=== PATIENT | male | born 1945 | race Caucasian/White ===

== ENCOUNTER 2020-12-06 16:44 | Inpatient (IN) ==
[2020-12-06] MEDS ORDERED: Naloxone 0.4 MG/ML INJ IVP PRN (21:36)
[2020-12-06] MEDS ORDERED: Ondansetron 4 MG/2 ML VIAL IVP PRN (21:36)
[2020-12-06] MEDS ORDERED: Potassium Chloride Elixir 20 MEQ/15 ML UDC PO ONE (21:55)
[2020-12-06] MEDS ORDERED: Potassium Chloride 40 MEQ, Lidocaine 1% 2 ML in 0.9 % Sodium Chloride 500 ML IVPB ONE (22:15)
[2020-12-06] MEDS ORDERED: Milk and Molasses Enema 200 ML RC ONE (23:28)
[2020-12-07 06:06] LABS: Basophils % 0.1 %; Hematocrit 31.4 % (37.5-50.1); Hemoglobin 10.4 g/dL (12.9-16.9); INR 1.3; Immature Granulocytes % 0.5 % (0-4); Lymphocytes # 0.8 K/mcL (0.6-4.6); Lymphocytes % 6.2 %; Mean Corpuscular HGB Conc 33.1 g/dL (31.6-35.5); Mean Corpuscular Hemoglobin 27.5 pg (28.0-33.3); Mean Corpuscular Volume 83.1 fL (83.0-100.0); Monocytes % 8.2 %; Neutrophils # 10.8 K/mcL (1.6-8.9); Platelet Count 202 K/mcL (140-400); Prothrombin Time 15.1 Seconds (9.4-12.1); Red Blood Count 3.78 M/mcL (4.19-5.50); Red Cell Distribution Width 15.3 % (11.5-14.5); White Blood Count 12.7 K/mcL (4.3-11.1)
[2020-12-07 06:24] LABS: Alanine Aminotransferase 9 Units/L (7-52); Albumin 2.7 g/dL (3.5-5.7); Alkaline Phosphatase 61 Units/L (34-104); Aspartate Amino Transferase 11 Units/L (13-39); BUN/Creatinine Ratio 23 (6-26); Bilirubin,Total 0.9 mg/dL (0.3-1.0); Blood Urea Nitrogen 10 mg/dL (8-23); Calcium 8.1 mg/dL (8.6-10.3); Carbon Dioxide 19 mEq/L (23-29); Chloride 122 mEq/L (98-107); Globulin 2.8 g/dL (2.4-3.5); Glucose 133 mg/dL (70-105); Magnesium 1.7 mg/dL (1.6-2.6); Osmolality,Calculated 309 (280-300); Phosphorous 1.6 mg/dL (2.7-4.5); Potassium 3.6 mEq/L (3.5-5.1); Sodium 149 mEq/L (136-145); Total Protein 5.5 g/dL (6.4-8.9); eGFR For African Americans > 60 (> 60); eGFR For Non-African Americans > 60 (> 60)
[2020-12-07] MEDS: Piperacillin/Tazobactam 3.375 GM in 0.9 % Sodium Chloride Mini Bag 100 ML IVPB SCH ×3 (08:14→23:18)
[2020-12-07] MEDS ORDERED: CefTRIAXone 2,000 MG VIAL IVPB SCH (09:00)
[2020-12-07] MEDS ORDERED: Sennosides 8.6 MG TABLET PO SCH (09:00)
[2020-12-07] MEDS ORDERED: cefTRIAXone 2,000 MG in Water for inj. (sterile) 20 ML IVPB SCH (09:00)
[2020-12-07] MEDS ORDERED: polyethylene glycoL 3350 17 GM POWD.PACK PO SCH (09:00)
[2020-12-07] MEDS ORDERED: Loratadine 10 MG TABLET PO SCH (09:00)
[2020-12-07] MEDS ORDERED: Lactulose Oral Soln 20 GM/30 ML UDC PO SCH (09:00)
[2020-12-07] MEDS: Simethicone 80 MG TAB.CHEW PO SCH ×3 (10:02→20:23)
[2020-12-07] MEDS ORDERED: Furosemide 40 MG/4 ML VIAL IVP ONE (11:24)
[2020-12-07] MEDS ORDERED: *HR* Propofol 200 MG/20 ML VIAL IVP ONE (16:45)
[2020-12-07] MEDS ORDERED: Ondansetron 4 MG/2 ML VIAL ONE (16:47)
[2020-12-07] MEDS ORDERED: Lidocaine -MPF 2% 2 ML VIAL ONE (16:48)
[2020-12-07] MEDS ORDERED: *HR* PHENYLEPHRINE 1,000 MCG/10 ML SYRINGE IVP ONE (17:13)
[2020-12-07] MEDS ORDERED: Ondansetron 4 MG/2 ML VIAL IVP PRN (18:26)
[2020-12-07] MEDS ORDERED: Naloxone 0.4 MG/ML INJ IVP PRN (18:26)
[2020-12-08 05:07] LABS: Basophils % 0.2 %; Hematocrit 32.4 % (37.5-50.1); Hemoglobin 10.4 g/dL (12.9-16.9); Lymphocytes # 1.2 K/mcL (0.6-4.6); Lymphocytes % 9.5 %; Mean Corpuscular HGB Conc 32.1 g/dL (31.6-35.5); Mean Corpuscular Hemoglobin 26.6 pg (28.0-33.3); Mean Corpuscular Volume 82.9 fL (83.0-100.0); Mean Platelet Volume 10.9 fL (9.4-12.4); Monocytes # 0.9 K/mcL (0.0-1.3); Monocytes % 6.7 %; Neutrophils # 10.7 K/mcL (1.6-8.9); Platelet Count 186 K/mcL (140-400); Red Blood Count 3.91 M/mcL (4.19-5.50); Red Cell Distribution Width 15.6 % (11.5-14.5); Segmented Neutrophils % 82.6 %; White Blood Count 12.9 K/mcL (4.3-11.1)
[2020-12-08 05:29] LABS: BUN/Creatinine Ratio 27 (6-26); Blood Urea Nitrogen 12 mg/dL (8-23); Calcium 8.2 mg/dL (8.6-10.3); Carbon Dioxide 27 mEq/L (23-29); Chloride 118 mEq/L (98-107); Glucose 120 mg/dL (70-105); Osmolality,Calculated 321 (280-300); Potassium 2.5 mEq/L (3.5-5.1); Sodium 155 mEq/L (136-145); eGFR For African Americans > 60 (> 60); eGFR For Non-African Americans > 60 (> 60)
[2020-12-08] MEDS ORDERED: Potassium Chloride Elixir 20 MEQ/15 ML UDC PO ONE (06:11)
[2020-12-08] MEDS ORDERED: Potassium Chloride 40 MEQ, Lidocaine 1% 2 ML in 0.9 % Sodium Chloride 500 ML IVPB ONE ×2 (06:12→19:47)
[2020-12-08] MEDS: Lactulose Oral Soln 20 GM/30 ML UDC PO SCH (08:43)
[2020-12-08] MEDS: Simethicone 80 MG TAB.CHEW PO SCH ×3 (08:44→22:25)
[2020-12-08] MEDS: polyethylene glycoL 3350 17 GM POWD.PACK PO SCH (08:44)
[2020-12-08] MEDS: Loratadine 10 MG TABLET PO SCH (08:44)
[2020-12-08] MEDS: Sennosides 8.6 MG TABLET PO SCH (08:45)
[2020-12-08] MEDS: Piperacillin/Tazobactam 3.375 GM in 0.9 % Sodium Chloride Mini Bag 100 ML IVPB SCH ×2 (08:47→16:45)
[2020-12-08] MEDS: Acetaminophen 325 MG TABLET PO PRN (19:51)
[2020-12-08 20:47] LABS: BUN/Creatinine Ratio 33 (6-26); Blood Urea Nitrogen 15 mg/dL (8-23); Calcium 8.1 mg/dL (8.6-10.3); Carbon Dioxide 25 mEq/L (23-29); Chloride 121 mEq/L (98-107); Glucose 308 mg/dL (70-105); Osmolality,Calculated 336 (280-300); Potassium 2.7 mEq/L (3.5-5.1); Sodium 157 mEq/L (136-145); eGFR For African Americans > 60 (> 60); eGFR For Non-African Americans > 60 (> 60)
[2020-12-09] MEDS: Piperacillin/Tazobactam 3.375 GM in 0.9 % Sodium Chloride Mini Bag 100 ML IVPB SCH ×4 (00:41→15:52)
[2020-12-09] MEDS ORDERED: Potassium Chloride 40 MEQ, Lidocaine 1% 2 ML in 0.9 % Sodium Chloride 500 ML IVPB ONE (02:30)
[2020-12-09 07:27] LABS: Basophils % 0.2 %; Eosinophils # 0.1 K/mcL (0.0-0.6); Hematocrit 31.7 % (37.5-50.1); Hemoglobin 10.7 g/dL (12.9-16.9); Immature Granulocytes % 2.1 % (0-4); Lymphocytes # 1.9 K/mcL (0.6-4.6); Mean Corpuscular HGB Conc 33.8 g/dL (31.6-35.5); Mean Corpuscular Hemoglobin 28.5 pg (28.0-33.3); Mean Corpuscular Volume 84.3 fL (83.0-100.0); Mean Platelet Volume 11.1 fL (9.4-12.4); Monocytes # 0.8 K/mcL (0.0-1.3); Monocytes % 5.4 %; Neutrophils # 11.3 K/mcL (1.6-8.9); Platelet Count 234 K/mcL (140-400); Red Blood Count 3.76 M/mcL (4.19-5.50); Red Cell Distribution Width 15.8 % (11.5-14.5); Segmented Neutrophils % 78.3 %; White Blood Count 14.5 K/mcL (4.3-11.1)
[2020-12-09 07:53] LABS: BUN/Creatinine Ratio 41 (6-26); Blood Urea Nitrogen 12 mg/dL (8-23); Calcium 7.9 mg/dL (8.6-10.3); Carbon Dioxide 24 mEq/L (23-29); Chloride 127 mEq/L (98-107); Glucose 129 mg/dL (70-105); Osmolality,Calculated 329 (280-300); Potassium 3.7 mEq/L (3.5-5.1); Sodium 159 mEq/L (136-145); eGFR For African Americans > 60 (> 60); eGFR For Non-African Americans > 60 (> 60)
[2020-12-09] MEDS: Lactulose Oral Soln 20 GM/30 ML UDC PO SCH (08:52)
[2020-12-09] MEDS: Simethicone 80 MG TAB.CHEW PO SCH ×3 (08:52→20:37)
[2020-12-09] MEDS: polyethylene glycoL 3350 17 GM POWD.PACK PO SCH (08:53)
[2020-12-09] MEDS: Loratadine 10 MG TABLET PO SCH (08:55)
[2020-12-09] MEDS: Sennosides 8.6 MG TABLET PO SCH (08:55)
[2020-12-10] MEDS: Piperacillin/Tazobactam 3.375 GM in 0.9 % Sodium Chloride Mini Bag 100 ML IVPB SCH ×3 (00:10→17:12)
[2020-12-10] MEDS: Acetaminophen 325 MG TABLET PO PRN (03:11)
[2020-12-10] MEDS ORDERED: Ibuprofen 600 MG TABLET PO ONE (04:50)
[2020-12-10 06:09] LABS: Adenovirus Not Detected (Not Detect); Bordetella Pertussis Not Detected (Not Detect); Chlamydophila pneumoniae Not Detected (Not Detect); Coronavirus 229E Not Detected (Not Detect); Coronavirus HKU1 Not Detected (Not Detect); Coronavirus NL63 Not Detected (Not Detect); Coronavirus OC43 Not Detected (Not Detect); Human Metapneumovirus Not Detected (Not Detect); Human Rhinovirus/Enterovirus Not Detected (Not Detect); Influenza A Subtype 2009 H1 Not Detected (Not Detect); Influenza B Not Detected (Not Detect); Mycoplasma pneumoniae Not Detected (Not Detect); Parainfluenza Virus 1 Not Detected (Not Detect); Parainfluenza Virus 2 Not Detected (Not Detect); Parainfluenza Virus 3 Not Detected (Not Detect); Parainfluenza Virus 4 Not Detected (Not Detect); Respiratory Syncytial Virus Not Detected (Not Detect); SARS-CoV-2 Not Detected (Not Detect)
[2020-12-10 08:56] LABS: Basophils % 0.2 %; Eosinophils # 0.6 K/mcL (0.0-0.6); Eosinophils % 4.9 %; Hematocrit 28.8 % (37.5-50.1); Hemoglobin 9.3 g/dL (12.9-16.9); Lymphocytes # 2.1 K/mcL (0.6-4.6); Lymphocytes % 17.1 %; Mean Corpuscular HGB Conc 32.3 g/dL (31.6-35.5); Mean Corpuscular Hemoglobin 27.9 pg (28.0-33.3); Mean Corpuscular Volume 86.5 fL (83.0-100.0); Monocytes # 0.6 K/mcL (0.0-1.3); Monocytes % 4.7 %; Neutrophils # 8.7 K/mcL (1.6-8.9); Platelet Count 280 K/mcL (140-400); Red Blood Count 3.33 M/mcL (4.19-5.50); Segmented Neutrophils % 72.1 %
[2020-12-10 09:28] LABS: BUN/Creatinine Ratio 39 (6-26); Blood Urea Nitrogen 13 mg/dL (8-23); Calcium 7.9 mg/dL (8.6-10.3); Carbon Dioxide 27 mEq/L (23-29); Chloride 128 mEq/L (98-107); Glucose 110 mg/dL (70-105); Osmolality,Calculated 335 (280-300); Potassium 3.4 mEq/L (3.5-5.1); Sodium 162 mEq/L (136-145); eGFR For African Americans > 60 (> 60); eGFR For Non-African Americans > 60 (> 60)
[2020-12-10] MEDS ORDERED: D5% in Water 1,000 ML IVC SCH (09:45)
[2020-12-10] MEDS: Sennosides 8.6 MG TABLET PO SCH (09:54)
[2020-12-10] MEDS: Loratadine 10 MG TABLET PO SCH (09:55)
[2020-12-10] MEDS: Lactulose Oral Soln 20 GM/30 ML UDC PO SCH (09:55)
[2020-12-10] MEDS: Simethicone 80 MG TAB.CHEW PO SCH ×3 (09:55→20:51)
[2020-12-10] MEDS: polyethylene glycoL 3350 17 GM POWD.PACK PO SCH (09:56)
[2020-12-10] MEDS: Furosemide 40 MG/4 ML VIAL IVP SCH (12:14)
[2020-12-11] MEDS: Piperacillin/Tazobactam 3.375 GM in 0.9 % Sodium Chloride Mini Bag 100 ML IVPB SCH ×4 (00:04→23:23)
[2020-12-11 05:43] LABS: Basophils % 0.3 %; Eosinophils # 0.9 K/mcL (0.0-0.6); Eosinophils % 5.7 %; Hemoglobin 9.6 g/dL (12.9-16.9); Immature Granulocytes % 1.1 % (0-4); Lymphocytes % 12.7 %; Mean Corpuscular Hemoglobin 28.1 pg (28.0-33.3); Mean Corpuscular Volume 87.7 fL (83.0-100.0); Mean Platelet Volume 11.3 fL (9.4-12.4); Monocytes # 0.6 K/mcL (0.0-1.3); Monocytes % 3.5 %; Platelet Count 324 K/mcL (140-400); Red Blood Count 3.42 M/mcL (4.19-5.50); Segmented Neutrophils % 76.7 %; White Blood Count 15.7 K/mcL (4.3-11.1)
[2020-12-11 06:03] LABS: BUN/Creatinine Ratio 50 (6-26); Blood Urea Nitrogen 11 mg/dL (8-23); Calcium 7.9 mg/dL (8.6-10.3); Carbon Dioxide 32 mEq/L (23-29); Chloride 117 mEq/L (98-107); Glucose 113 mg/dL (70-105); Osmolality,Calculated 322 (280-300); Potassium 2.8 mEq/L (3.5-5.1); Sodium 156 mEq/L (136-145); eGFR For African Americans > 60 (> 60); eGFR For Non-African Americans > 60 (> 60)
[2020-12-11] MEDS ORDERED: Potassium Chloride 40 MEQ, Lidocaine 1% 2 ML in 0.9 % Sodium Chloride 500 ML IVPB ONE (08:54)
[2020-12-11] MEDS: Loratadine 10 MG TABLET PO SCH (10:09)
[2020-12-11] MEDS: Sennosides 8.6 MG TABLET PO SCH (10:09)
[2020-12-11] MEDS: Lactulose Oral Soln 20 GM/30 ML UDC PO SCH (10:09)
[2020-12-11] MEDS: Simethicone 80 MG TAB.CHEW PO SCH ×3 (10:09→22:05)
[2020-12-11] MEDS: Furosemide 40 MG/4 ML VIAL IVP SCH (10:09)
[2020-12-11] MEDS: polyethylene glycoL 3350 17 GM POWD.PACK PO SCH (10:10)
[2020-12-11] MEDS ORDERED: Potassium Chloride Elixir 20 MEQ/15 ML UDC PO ONE (16:10)
[2020-12-11] MEDS: Acetaminophen 325 MG TABLET PO PRN (23:23)
[2020-12-12 04:02] LABS: Basophils % 0.2 %; Eosinophils # 0.4 K/mcL (0.0-0.6); Eosinophils % 2.6 %; Hematocrit 32.6 % (37.5-50.1); Hemoglobin 9.8 g/dL (12.9-16.9); Lymphocytes # 2.3 K/mcL (0.6-4.6); Lymphocytes % 13.9 %; Mean Corpuscular HGB Conc 30.1 g/dL (31.6-35.5); Mean Corpuscular Hemoglobin 26.8 pg (28.0-33.3); Mean Corpuscular Volume 89.3 fL (83.0-100.0); Mean Platelet Volume 11.2 fL (9.4-12.4); Monocytes # 0.6 K/mcL (0.0-1.3); Monocytes % 3.6 %; Neutrophils # 13.1 K/mcL (1.6-8.9); Platelet Count 389 K/mcL (140-400); Red Blood Count 3.65 M/mcL (4.19-5.50); Segmented Neutrophils % 78.7 %; White Blood Count 16.6 K/mcL (4.3-11.1)
[2020-12-12 04:15] LABS: BUN/Creatinine Ratio 33 (6-26); Blood Urea Nitrogen 14 mg/dL (8-23); Calcium 8.2 mg/dL (8.6-10.3); Carbon Dioxide 33 mEq/L (23-29); Chloride 117 mEq/L (98-107); Glucose 182 mg/dL (70-105); Osmolality,Calculated 331 (280-300); Sodium 158 mEq/L (136-145); eGFR For African Americans > 60 (> 60); eGFR For Non-African Americans > 60 (> 60)
[2020-12-12] MEDS ORDERED: 0.9 % Sodium Chloride 1,000 ML ONE (07:23)
[2020-12-12] MEDS ORDERED: Potassium Chloride Elixir 20 MEQ/15 ML UDC PO ONE (07:28)
[2020-12-12] MEDS ORDERED: Isovue-370 500 ML BOTTLE IVP ONE ×2 (07:31→12:10)
[2020-12-12] MEDS: Loratadine 10 MG TABLET PO SCH (08:54)
[2020-12-12] MEDS: Lactulose Oral Soln 20 GM/30 ML UDC PO SCH (08:54)
[2020-12-12] MEDS: Simethicone 80 MG TAB.CHEW PO SCH ×3 (08:54→20:06)
[2020-12-12] MEDS: Furosemide 40 MG/4 ML VIAL IVP SCH (08:55)
[2020-12-12] MEDS: Sennosides 8.6 MG TABLET PO SCH (08:56)
[2020-12-12] MEDS: polyethylene glycoL 3350 17 GM POWD.PACK PO SCH (08:56)
[2020-12-12] MEDS: Piperacillin/Tazobactam 3.375 GM in 0.9 % Sodium Chloride Mini Bag 100 ML IVPB SCH ×2 (09:04→16:10)
[2020-12-12] MEDS: levoFLOXacin 750 MG/150 ML 750 MG/150 ML BAG IVPB SCH (12:55)
[2020-12-12 13:48] LABS: BUN/Creatinine Ratio 45 (6-26); Blood Urea Nitrogen 14 mg/dL (8-23); Calcium 8.1 mg/dL (8.6-10.3); Carbon Dioxide 28 mEq/L (23-29); Chloride 120 mEq/L (98-107); Glucose 99 mg/dL (70-105); Osmolality,Calculated 325 (280-300); Potassium 4.8 mEq/L (3.5-5.1); Sodium 157 mEq/L (136-145); eGFR For African Americans > 60 (> 60); eGFR For Non-African Americans > 60 (> 60)
[2020-12-12] MEDS: D5% in Water 1,000 ML IVC SCH ×2 (14:45→19:21)
[2020-12-12 16:48] LABS: Adenovirus Not Detected (Not Detect); Bordetella Pertussis Not Detected (Not Detect); Chlamydophila pneumoniae Not Detected (Not Detect); Coronavirus 229E Not Detected (Not Detect); Coronavirus HKU1 Not Detected (Not Detect); Coronavirus NL63 Not Detected (Not Detect); Coronavirus OC43 Not Detected (Not Detect); Human Metapneumovirus Not Detected (Not Detect); Human Rhinovirus/Enterovirus Not Detected (Not Detect); Influenza A Subtype 2009 H1 Not Detected (Not Detect); Influenza B Not Detected (Not Detect); Mycoplasma pneumoniae Not Detected (Not Detect); Parainfluenza Virus 1 Not Detected (Not Detect); Parainfluenza Virus 2 Not Detected (Not Detect); Parainfluenza Virus 3 Not Detected (Not Detect); Parainfluenza Virus 4 Not Detected (Not Detect); Respiratory Syncytial Virus Not Detected (Not Detect); SARS-CoV-2 Not Detected (Not Detect)
[2020-12-12 19:11] LABS: BUN/Creatinine Ratio 36 (6-26); Blood Urea Nitrogen 10 mg/dL (8-23); Calcium 7.6 mg/dL (8.6-10.3); Carbon Dioxide 31 mEq/L (23-29); Chloride 118 mEq/L (98-107); Glucose 219 mg/dL (70-105); Osmolality,Calculated 322 (280-300); Potassium 3.2 mEq/L (3.5-5.1); Sodium 153 mEq/L (136-145); eGFR For African Americans > 60 (> 60); eGFR For Non-African Americans > 60 (> 60)
[2020-12-13] MEDS: Piperacillin/Tazobactam 3.375 GM in 0.9 % Sodium Chloride Mini Bag 100 ML IVPB SCH ×3 (01:43→15:21)
[2020-12-13 02:19] LABS: Basophils % 0.1 %; Eosinophils # 0.5 K/mcL (0.0-0.6); Eosinophils % 3.4 %; Hematocrit 28.9 % (37.5-50.1); Immature Granulocytes % 0.9 % (0-4); Lymphocytes % 14.6 %; Mean Corpuscular HGB Conc 31.1 g/dL (31.6-35.5); Mean Corpuscular Volume 89.8 fL (83.0-100.0); Mean Platelet Volume 11.1 fL (9.4-12.4); Monocytes # 0.5 K/mcL (0.0-1.3); Monocytes % 3.7 %; Neutrophils # 10.3 K/mcL (1.6-8.9); Platelet Count 380 K/mcL (140-400); Red Blood Count 3.22 M/mcL (4.19-5.50); Segmented Neutrophils % 77.3 %; White Blood Count 13.4 K/mcL (4.3-11.1)
[2020-12-13 02:38] LABS: BUN/Creatinine Ratio 33 (6-26); Blood Urea Nitrogen 8 mg/dL (8-23); Calcium 7.6 mg/dL (8.6-10.3); Carbon Dioxide 28 mEq/L (23-29); Chloride 114 mEq/L (98-107); Glucose 98 mg/dL (70-105); Osmolality,Calculated 306 (280-300); Potassium 3.1 mEq/L (3.5-5.1); Sodium 149 mEq/L (136-145); eGFR For African Americans > 60 (> 60); eGFR For Non-African Americans > 60 (> 60)
[2020-12-13] MEDS: D5% in Water 1,000 ML IVC SCH (08:05)
[2020-12-13] MEDS: polyethylene glycoL 3350 17 GM POWD.PACK PO SCH (08:06)
[2020-12-13] MEDS: Loratadine 10 MG TABLET PO SCH (08:06)
[2020-12-13] MEDS: Lactulose Oral Soln 20 GM/30 ML UDC PO SCH (08:06)
[2020-12-13] MEDS: Simethicone 80 MG TAB.CHEW PO SCH ×3 (08:06→20:31)
[2020-12-13] MEDS: Sennosides 8.6 MG TABLET PO SCH (08:07)
[2020-12-13] MEDS: levoFLOXacin 750 MG/150 ML 750 MG/150 ML BAG IVPB SCH (08:07)
[2020-12-13] MEDS: Furosemide 40 MG/4 ML VIAL IVP SCH (08:07)
[2020-12-13] MEDS ORDERED: Perflutren Lipid Microsphere 1.3 ML in 0.9 % Sodium Chloride 8.7 ML IVP PRN (12:43)
[2020-12-13 14:24] LABS: VBG HCO3 34 mEq/L (21-27); VBG PCO2 45 mmHg (41-51); VBG PH 7.49 pH Units (7.32-7.42); VBG PO2 137 mmHg (25-50)
[2020-12-13] MEDS: Acetaminophen 325 MG TABLET PO PRN (20:30)
[2020-12-14] MEDS: Piperacillin/Tazobactam 3.375 GM in 0.9 % Sodium Chloride Mini Bag 100 ML IVPB SCH ×2 (02:15→09:29)
[2020-12-14] MEDS: D5% in Water 1,000 ML IVC SCH (02:17)
[2020-12-14] MEDS: levoFLOXacin 750 MG/150 ML 750 MG/150 ML BAG IVPB SCH (09:08)
[2020-12-14] MEDS: Lactulose Oral Soln 20 GM/30 ML UDC PO SCH (09:10)
[2020-12-14] MEDS: Sennosides 8.6 MG TABLET PO SCH (09:10)
[2020-12-14] MEDS: Simethicone 80 MG TAB.CHEW PO SCH ×3 (09:10→21:01)
[2020-12-14] MEDS: polyethylene glycoL 3350 17 GM POWD.PACK PO SCH (09:11)
[2020-12-14] MEDS: Loratadine 10 MG TABLET PO SCH (09:11)
[2020-12-14] MEDS: Furosemide 40 MG/4 ML VIAL IVP SCH (09:11)
[2020-12-14 09:55] LABS: Hematocrit 31.1 % (37.5-50.1); Hemoglobin 9.5 g/dL (12.9-16.9); Mean Corpuscular HGB Conc 30.5 g/dL (31.6-35.5); Mean Corpuscular Hemoglobin 26.9 pg (28.0-33.3); Mean Corpuscular Volume 88.1 fL (83.0-100.0); Mean Platelet Volume 10.7 fL (9.4-12.4); Platelet Count 384 K/mcL (140-400); Red Blood Count 3.53 M/mcL (4.19-5.50); Red Cell Distribution Width 15.6 % (11.5-14.5)
[2020-12-14 10:19] LABS: BUN/Creatinine Ratio 19 (6-26); Blood Urea Nitrogen 7 mg/dL (8-23); Calcium 8.1 mg/dL (8.6-10.3); Carbon Dioxide 27 mEq/L (23-29); Chloride 107 mEq/L (98-107); Glucose 109 mg/dL (70-105); Osmolality,Calculated 293 (280-300); Potassium 3.3 mEq/L (3.5-5.1); Sodium 142 mEq/L (136-145); eGFR For African Americans > 60 (> 60); eGFR For Non-African Americans > 60 (> 60)
[2020-12-14] MEDS ORDERED: Potassium Chloride 40 MEQ, Lidocaine 1% 2 ML in 0.9 % Sodium Chloride 500 ML IVPB ONE (10:28)
[2020-12-14] MEDS ORDERED: Vancomycin 1,250 MG/262.5 ML IV.SOLN IVPB SCH (13:00)
[2020-12-14] MEDS: Acetaminophen 325 MG TABLET PO PRN (13:12)
[2020-12-14 16:39] LABS: BUN/Creatinine Ratio 16 (6-26); Blood Urea Nitrogen 7 mg/dL (8-23); Calcium 8.6 mg/dL (8.6-10.3); Carbon Dioxide 29 mEq/L (23-29); Chloride 108 mEq/L (98-107); Glucose 131 mg/dL (70-105); Osmolality,Calculated 298 (280-300); Sodium 144 mEq/L (136-145); eGFR For African Americans > 60 (> 60); eGFR For Non-African Americans > 60 (> 60)
[2020-12-14] MEDS ORDERED: Ipratropium/Albuterol Neb 3 ML IH PRN (17:50)
[2020-12-15 05:57] LABS: Hematocrit 33.8 % (37.5-50.1); Hemoglobin 10.4 g/dL (12.9-16.9); Mean Corpuscular HGB Conc 30.8 g/dL (31.6-35.5); Mean Corpuscular Hemoglobin 26.9 pg (28.0-33.3); Mean Corpuscular Volume 87.3 fL (83.0-100.0); Mean Platelet Volume 10.4 fL (9.4-12.4); Platelet Count 450 K/mcL (140-400); Red Blood Count 3.87 M/mcL (4.19-5.50); Red Cell Distribution Width 15.4 % (11.5-14.5)
[2020-12-15 06:17] LABS: BUN/Creatinine Ratio 19 (6-26); Blood Urea Nitrogen 7 mg/dL (8-23); Calcium 8.5 mg/dL (8.6-10.3); Carbon Dioxide 26 mEq/L (23-29); Chloride 110 mEq/L (98-107); Glucose 111 mg/dL (70-105); Osmolality,Calculated 295 (280-300); Potassium 3.9 mEq/L (3.5-5.1); Sodium 143 mEq/L (136-145); eGFR For African Americans > 60 (> 60); eGFR For Non-African Americans > 60 (> 60)
[2020-12-15] MEDS: levoFLOXacin 750 MG/150 ML 750 MG/150 ML BAG IVPB SCH (08:55)
[2020-12-15] MEDS: Furosemide 40 MG/4 ML VIAL IVP SCH (08:57)
[2020-12-15] MEDS: Lactulose Oral Soln 20 GM/30 ML UDC PO SCH (10:05)
[2020-12-15] MEDS: polyethylene glycoL 3350 17 GM POWD.PACK PO SCH (10:05)
[2020-12-15] MEDS: Simethicone 80 MG TAB.CHEW PO SCH ×3 (10:05→20:40)
[2020-12-15] MEDS: Sennosides 8.6 MG TABLET PO SCH (10:05)
[2020-12-15] MEDS: Loratadine 10 MG TABLET PO SCH (10:05)
[2020-12-15] MEDS ORDERED: 0.9 % Sodium Chloride 500 ML IVC ONE (10:58)
[2020-12-15] MEDS: Acetaminophen 325 MG TABLET PO PRN (11:12)
[2020-12-15] MEDS ORDERED: Isovue-370 500 ML BOTTLE IVP ONE (12:31)
[2020-12-15] MEDS ORDERED: Ketorolac 15 MG/ML VIAL IVP ONE (12:31)
[2020-12-15] MEDS ORDERED: 0.9 % Sodium Chloride 250 ML IV ONE (13:03)
[2020-12-15] MEDS ORDERED: *HR* Metoprolol 5 MG/5 ML VIAL IVP ONE (14:16)
[2020-12-15] MEDS ORDERED: *HR* Heparin 5,000 UNIT/ML VIAL IVP PRN ×2 (14:21)
[2020-12-15] MEDS ORDERED: *HR* Heparin 5,000 UNIT/ML VIAL IVP ONE (14:21)
[2020-12-15] MEDS ORDERED: Heparin 25,000UNIT/250ML 1/2NS 25,000 UNIT/250 ML IV.SOLN IVC SCH (14:30)
[2020-12-15] MEDS: *HR* Enoxaparin 60 MG/0.6 ML SYRINGE SQ SCH (14:33)
[2020-12-15 15:29] LABS: Hematocrit 32.7 % (37.5-50.1); Hemoglobin 10.2 g/dL (12.9-16.9); Mean Corpuscular HGB Conc 31.2 g/dL (31.6-35.5); Mean Corpuscular Hemoglobin 27.8 pg (28.0-33.3); Mean Corpuscular Volume 89.1 fL (83.0-100.0); Mean Platelet Volume 10.6 fL (9.4-12.4); Platelet Count 490 K/mcL (140-400); Red Blood Count 3.67 M/mcL (4.19-5.50); Red Cell Distribution Width 15.2 % (11.5-14.5); White Blood Count 14.1 K/mcL (4.3-11.1)
[2020-12-15] MEDS ORDERED: [UNRECOGNIZED DRUG - OTHER] PO SCH (18:00)
[2020-12-15] MEDS: Sennosides/Docusate Sodium TABLET PO SCH (20:40)
[2020-12-16 04:40] LABS: Hematocrit 35.2 % (37.5-50.1); Hemoglobin 10.8 g/dL (12.9-16.9); Mean Corpuscular HGB Conc 30.7 g/dL (31.6-35.5); Mean Corpuscular Hemoglobin 27.1 pg (28.0-33.3); Mean Corpuscular Volume 88.4 fL (83.0-100.0); Mean Platelet Volume 10.7 fL (9.4-12.4); Platelet Count 523 K/mcL (140-400); Red Blood Count 3.98 M/mcL (4.19-5.50); Red Cell Distribution Width 15.8 % (11.5-14.5)
[2020-12-16 05:00] LABS: BUN/Creatinine Ratio 32 (6-26); Blood Urea Nitrogen 13 mg/dL (8-23); Calcium 8.7 mg/dL (8.6-10.3); Carbon Dioxide 24 mEq/L (23-29); Chloride 113 mEq/L (98-107); Glucose 128 mg/dL (70-105); Osmolality,Calculated 310 (280-300); Potassium 3.3 mEq/L (3.5-5.1); Sodium 149 mEq/L (136-145); eGFR For African Americans > 60 (> 60); eGFR For Non-African Americans > 60 (> 60)
[2020-12-16] MEDS: *HR* Enoxaparin 60 MG/0.6 ML SYRINGE SQ SCH (05:33)
[2020-12-16] MEDS: Sennosides/Docusate Sodium TABLET PO SCH ×2 (07:52→20:34)
[2020-12-16] MEDS: levoFLOXacin 750 MG/150 ML 750 MG/150 ML BAG IVPB SCH (07:52)
[2020-12-16] MEDS: Simethicone 80 MG TAB.CHEW PO SCH ×3 (07:52→20:35)
[2020-12-16] MEDS: Lactulose Oral Soln 20 GM/30 ML UDC PO SCH (07:52)
[2020-12-16] MEDS: Loratadine 10 MG TABLET PO SCH (07:52)
[2020-12-16] MEDS: Potassium Chloride Elixir 20 MEQ/15 ML UDC PO SCH ×2 (08:10→14:00)
[2020-12-16] MEDS: polyethylene glycoL 3350 17 GM POWD.PACK PO SCH (08:11)
[2020-12-16] MEDS: D5% in Water 1,000 ML IVC SCH (08:11)
[2020-12-16] MEDS ORDERED: *HR* Metoprolol 5 MG/5 ML VIAL IVP ONE (08:46)
[2020-12-16] MEDS: Apixaban 5 MG TABLET PO SCH ×2 (09:49→20:35)
[2020-12-17] MEDS: D5% in Water 1,000 ML IVC SCH ×2 (00:06→13:32)
[2020-12-17 04:00] LABS: Hematocrit 32.8 % (37.5-50.1); Mean Corpuscular HGB Conc 30.5 g/dL (31.6-35.5); Mean Corpuscular Hemoglobin 27.5 pg (28.0-33.3); Mean Corpuscular Volume 90.1 fL (83.0-100.0); Mean Platelet Volume 11.2 fL (9.4-12.4); Platelet Count 461 K/mcL (140-400); Red Blood Count 3.64 M/mcL (4.19-5.50); Red Cell Distribution Width 15.9 % (11.5-14.5)
[2020-12-17 04:25] LABS: BUN/Creatinine Ratio 38 (6-26); Blood Urea Nitrogen 15 mg/dL (8-23); Calcium 8.3 mg/dL (8.6-10.3); Carbon Dioxide 21 mEq/L (23-29); Chloride 112 mEq/L (98-107); Glucose 149 mg/dL (70-105); Osmolality,Calculated 298 (280-300); Potassium 4.2 mEq/L (3.5-5.1); Sodium 142 mEq/L (136-145); eGFR For African Americans > 60 (> 60); eGFR For Non-African Americans > 60 (> 60)
[2020-12-17] MEDS ORDERED: *HR* Belladonna Alkaloids/Opium 30 MG RECTAL SUPPOSITORY RC ONE (05:42)
[2020-12-17] MEDS: Sennosides/Docusate Sodium TABLET PO SCH ×2 (08:22→21:49)
[2020-12-17] MEDS: polyethylene glycoL 3350 17 GM POWD.PACK PO SCH (08:22)
[2020-12-17] MEDS: Loratadine 10 MG TABLET PO SCH (08:23)
[2020-12-17] MEDS: levoFLOXacin 750 MG/150 ML 750 MG/150 ML BAG IVPB SCH (08:23)
[2020-12-17] MEDS: Lactulose Oral Soln 20 GM/30 ML UDC PO SCH (08:23)
[2020-12-17] MEDS: Apixaban 5 MG TABLET PO SCH ×2 (08:23→21:49)
[2020-12-17] MEDS: Simethicone 80 MG TAB.CHEW PO SCH ×3 (08:23→21:49)
[2020-12-17 12:12] LABS: Hematocrit 32.2 % (37.5-50.1); Hemoglobin 9.6 g/dL (12.9-16.9)
[2020-12-17 18:19] LABS: Hematocrit 34.1 % (37.5-50.1); Hemoglobin 10.4 g/dL (12.9-16.9)
[2020-12-18 00:30] LABS: Hematocrit 36.4 % (37.5-50.1); Hemoglobin 10.9 g/dL (12.9-16.9)
[2020-12-18] MEDS: D5% in Water 1,000 ML IVC SCH (03:00)
[2020-12-18 03:13] LABS: Hematocrit 31.9 % (37.5-50.1); Hemoglobin 9.7 g/dL (12.9-16.9); Mean Corpuscular HGB Conc 30.4 g/dL (31.6-35.5); Mean Corpuscular Hemoglobin 27.2 pg (28.0-33.3); Mean Corpuscular Volume 89.6 fL (83.0-100.0); Mean Platelet Volume 10.3 fL (9.4-12.4); Platelet Count 489 K/mcL (140-400); Red Blood Count 3.56 M/mcL (4.19-5.50); Red Cell Distribution Width 15.4 % (11.5-14.5); White Blood Count 14.8 K/mcL (4.3-11.1)
[2020-12-18 03:36] LABS: BUN/Creatinine Ratio 27 (6-26); Blood Urea Nitrogen 9 mg/dL (8-23); Calcium 8.1 mg/dL (8.6-10.3); Carbon Dioxide 21 mEq/L (23-29); Chloride 106 mEq/L (98-107); Glucose 137 mg/dL (70-105); Osmolality,Calculated 281 (280-300); Potassium 3.9 mEq/L (3.5-5.1); Sodium 135 mEq/L (136-145); eGFR For African Americans > 60 (> 60); eGFR For Non-African Americans > 60 (> 60)
[2020-12-18] MEDS: polyethylene glycoL 3350 17 GM POWD.PACK PO SCH (07:29)
[2020-12-18] MEDS: Apixaban 5 MG TABLET PO SCH ×2 (07:29→20:36)
[2020-12-18] MEDS: Loratadine 10 MG TABLET PO SCH (07:29)
[2020-12-18] MEDS: Simethicone 80 MG TAB.CHEW PO SCH ×3 (07:29→20:36)
[2020-12-18] MEDS: Lactulose Oral Soln 20 GM/30 ML UDC PO SCH (07:29)
[2020-12-18] MEDS: levoFLOXacin 750 MG/150 ML 750 MG/150 ML BAG IVPB SCH (07:30)
[2020-12-18] MEDS: Sennosides/Docusate Sodium TABLET PO SCH ×2 (07:31→20:42)
[2020-12-18 14:38] LABS: Hematocrit 32.5 % (37.5-50.1); Hemoglobin 10.1 g/dL (12.9-16.9)
[2020-12-18 19:42] LABS: Hematocrit 33.9 % (37.5-50.1); Hemoglobin 10.3 g/dL (12.9-16.9)
[2020-12-19 01:04] LABS: Hematocrit 32.9 % (37.5-50.1); Hemoglobin 10.5 g/dL (12.9-16.9)
[2020-12-19 05:22] LABS: Hematocrit 34.8 % (37.5-50.1); Hemoglobin 10.6 g/dL (12.9-16.9); Mean Corpuscular HGB Conc 30.5 g/dL (31.6-35.5); Mean Corpuscular Hemoglobin 26.6 pg (28.0-33.3); Mean Corpuscular Volume 87.4 fL (83.0-100.0); Mean Platelet Volume 10.1 fL (9.4-12.4); Platelet Count 492 K/mcL (140-400); Red Blood Count 3.98 M/mcL (4.19-5.50); Red Cell Distribution Width 15.3 % (11.5-14.5); White Blood Count 13.5 K/mcL (4.3-11.1)
[2020-12-19 05:31] LABS: BUN/Creatinine Ratio 26 (6-26); Blood Urea Nitrogen 8 mg/dL (8-23); Calcium 8.1 mg/dL (8.6-10.3); Carbon Dioxide 20 mEq/L (23-29); Chloride 105 mEq/L (98-107); Glucose 117 mg/dL (70-105); Osmolality,Calculated 279 (280-300); Potassium 4.1 mEq/L (3.5-5.1); Sodium 135 mEq/L (136-145); eGFR For African Americans > 60 (> 60); eGFR For Non-African Americans > 60 (> 60)
[2020-12-19] MEDS: Simethicone 80 MG TAB.CHEW PO SCH ×3 (08:02→19:59)
[2020-12-19] MEDS: Apixaban 5 MG TABLET PO SCH ×2 (08:03→19:59)
[2020-12-19] MEDS: levoFLOXacin 750 MG/150 ML 750 MG/150 ML BAG IVPB SCH (08:03)
[2020-12-19] MEDS: polyethylene glycoL 3350 17 GM POWD.PACK PO SCH (08:03)
[2020-12-19] MEDS: Sennosides/Docusate Sodium TABLET PO SCH ×2 (08:03→19:59)
[2020-12-19] MEDS: Loratadine 10 MG TABLET PO SCH (08:03)
[2020-12-19] MEDS: Lactulose Oral Soln 20 GM/30 ML UDC PO SCH (08:03)
[2020-12-19 19:19] LABS: Hematocrit 31.3 % (37.5-50.1)
[2020-12-20 01:21] LABS: Hematocrit 30.5 % (37.5-50.1); Hemoglobin 9.6 g/dL (12.9-16.9)
[2020-12-20 05:41] LABS: Hematocrit 30.2 % (37.5-50.1); Hemoglobin 9.6 g/dL (12.9-16.9); Mean Corpuscular HGB Conc 31.8 g/dL (31.6-35.5); Mean Corpuscular Hemoglobin 27.4 pg (28.0-33.3); Mean Platelet Volume 10.2 fL (9.4-12.4); Platelet Count 469 K/mcL (140-400); Red Blood Count 3.51 M/mcL (4.19-5.50); Red Cell Distribution Width 15.2 % (11.5-14.5)
[2020-12-20 06:02] LABS: BUN/Creatinine Ratio 34 (6-26); Blood Urea Nitrogen 12 mg/dL (8-23); Calcium 8.2 mg/dL (8.6-10.3); Carbon Dioxide 22 mEq/L (23-29); Chloride 108 mEq/L (98-107); Glucose 96 mg/dL (70-105); Osmolality,Calculated 284 (280-300); Potassium 3.7 mEq/L (3.5-5.1); Sodium 137 mEq/L (136-145); eGFR For African Americans > 60 (> 60); eGFR For Non-African Americans > 60 (> 60)
[2020-12-20] MEDS: Apixaban 5 MG TABLET PO SCH (07:44)
[2020-12-20] MEDS: Loratadine 10 MG TABLET PO SCH (07:44)
[2020-12-20] MEDS: levoFLOXacin 750 MG/150 ML 750 MG/150 ML BAG IVPB SCH (07:44)
[2020-12-20] MEDS: Simethicone 80 MG TAB.CHEW PO SCH ×3 (07:44→21:10)
[2020-12-20] MEDS: polyethylene glycoL 3350 17 GM POWD.PACK PO SCH (07:44)
[2020-12-20] MEDS: Sennosides/Docusate Sodium TABLET PO SCH ×2 (07:44→21:10)
[2020-12-20] MEDS: Lactulose Oral Soln 20 GM/30 ML UDC PO SCH (07:45)
[2020-12-20 15:06] LABS: INR 1.2; Prothrombin Time 14.1 Seconds (9.4-12.1)
[2020-12-20 15:07] LABS: Hematocrit 30.5 % (37.5-50.1); Hemoglobin 9.8 g/dL (12.9-16.9); Mean Corpuscular HGB Conc 32.1 g/dL (31.6-35.5); Mean Corpuscular Hemoglobin 27.7 pg (28.0-33.3); Mean Corpuscular Volume 86.2 fL (83.0-100.0); Mean Platelet Volume 9.7 fL (9.4-12.4); Platelet Count 464 K/mcL (140-400); Red Blood Count 3.54 M/mcL (4.19-5.50); Red Cell Distribution Width 15.1 % (11.5-14.5)
[2020-12-20] MEDS ORDERED: *HR* Heparin 5,000 UNIT/ML VIAL IVP PRN ×2 (21:00)
[2020-12-20] MEDS: Heparin 25,000UNIT/250ML 1/2NS 25,000 UNIT/250 ML IV.SOLN IVC SCH (21:11)
[2020-12-21] MEDS: levoFLOXacin 750 MG/150 ML 750 MG/150 ML BAG IVPB SCH (09:38)
[2020-12-21] MEDS: Lactulose Oral Soln 20 GM/30 ML UDC PO SCH ×2 (09:38→15:16)
[2020-12-21] MEDS: polyethylene glycoL 3350 17 GM POWD.PACK PO SCH ×2 (09:38→15:16)
[2020-12-21] MEDS: Sennosides/Docusate Sodium TABLET PO SCH ×2 (09:39→20:02)
[2020-12-21] MEDS: Simethicone 80 MG TAB.CHEW PO SCH ×3 (09:39→20:02)
[2020-12-21] MEDS: Loratadine 10 MG TABLET PO SCH (09:39)
[2020-12-21 10:58] LABS: Basophils # 0.1 K/mcL (0.0-0.2); Basophils % 0.7 %; Eosinophils # 0.2 K/mcL (0.0-0.6); Eosinophils % 1.4 %; Hematocrit 32.5 % (37.5-50.1); Hemoglobin 10.1 g/dL (12.9-16.9); Immature Granulocytes % 1.4 % (0-4); Lymphocytes % 16.1 %; Mean Corpuscular HGB Conc 31.1 g/dL (31.6-35.5); Mean Corpuscular Hemoglobin 26.7 pg (28.0-33.3); Monocytes # 0.9 K/mcL (0.0-1.3); Neutrophils # 9.2 K/mcL (1.6-8.9); Platelet Count 474 K/mcL (140-400); Red Blood Count 3.78 M/mcL (4.19-5.50); Red Cell Distribution Width 15.6 % (11.5-14.5); Segmented Neutrophils % 73.4 %; White Blood Count 12.6 K/mcL (4.3-11.1)
[2020-12-21 11:15] LABS: BUN/Creatinine Ratio 30 (6-26); Blood Urea Nitrogen 12 mg/dL (8-23); Calcium 8.7 mg/dL (8.6-10.3); Carbon Dioxide 27 mEq/L (23-29); Chloride 105 mEq/L (98-107); Glucose 105 mg/dL (70-105); Osmolality,Calculated 290 (280-300); Potassium 4.2 mEq/L (3.5-5.1); Sodium 140 mEq/L (136-145); eGFR For African Americans > 60 (> 60); eGFR For Non-African Americans > 60 (> 60)
[2020-12-21] MEDS ORDERED: BACLOFEN PAIN PUMP IT PRN (12:10)
[2020-12-22] MEDS: Heparin 25,000UNIT/250ML 1/2NS 25,000 UNIT/250 ML IV.SOLN IVC SCH (00:01)
[2020-12-22 04:17] LABS: Hematocrit 29.5 % (37.5-50.1); Hemoglobin 9.2 g/dL (12.9-16.9); Mean Corpuscular HGB Conc 31.2 g/dL (31.6-35.5); Mean Corpuscular Hemoglobin 27.2 pg (28.0-33.3); Mean Corpuscular Volume 87.3 fL (83.0-100.0); Mean Platelet Volume 9.7 fL (9.4-12.4); Platelet Count 441 K/mcL (140-400); Red Blood Count 3.38 M/mcL (4.19-5.50); Red Cell Distribution Width 15.7 % (11.5-14.5); White Blood Count 11.8 K/mcL (4.3-11.1)
[2020-12-22 04:39] LABS: BUN/Creatinine Ratio 45 (6-26); Blood Urea Nitrogen 14 mg/dL (8-23); Calcium 8.4 mg/dL (8.6-10.3); Carbon Dioxide 25 mEq/L (23-29); Chloride 106 mEq/L (98-107); Glucose 110 mg/dL (70-105); Osmolality,Calculated 289 (280-300); Potassium 3.9 mEq/L (3.5-5.1); Sodium 139 mEq/L (136-145); eGFR For African Americans > 60 (> 60); eGFR For Non-African Americans > 60 (> 60)
[2020-12-22] MEDS: polyethylene glycoL 3350 17 GM POWD.PACK PO SCH (07:41)
[2020-12-22] MEDS: Sennosides/Docusate Sodium TABLET PO SCH ×2 (07:41→21:16)
[2020-12-22] MEDS: Loratadine 10 MG TABLET PO SCH (07:41)
[2020-12-22] MEDS: Simethicone 80 MG TAB.CHEW PO SCH ×3 (07:41→21:17)
[2020-12-22] MEDS: Lactulose Oral Soln 20 GM/30 ML UDC PO SCH (07:41)
[2020-12-22] MEDS: *HR* Heparin 5,000 UNIT/ML VIAL SQ SCH (21:17)
[2020-12-23 03:33] LABS: Hematocrit 31.3 % (37.5-50.1); Hemoglobin 9.6 g/dL (12.9-16.9); Mean Corpuscular HGB Conc 30.7 g/dL (31.6-35.5); Mean Corpuscular Hemoglobin 26.7 pg (28.0-33.3); Mean Corpuscular Volume 86.9 fL (83.0-100.0); Mean Platelet Volume 9.2 fL (9.4-12.4); Platelet Count 456 K/mcL (140-400); Red Cell Distribution Width 15.9 % (11.5-14.5); White Blood Count 10.9 K/mcL (4.3-11.1)
[2020-12-23 03:53] LABS: BUN/Creatinine Ratio 33 (6-26); Blood Urea Nitrogen 11 mg/dL (8-23); Calcium 8.6 mg/dL (8.6-10.3); Carbon Dioxide 25 mEq/L (23-29); Chloride 108 mEq/L (98-107); Glucose 110 mg/dL (70-105); Osmolality,Calculated 292 (280-300); Sodium 141 mEq/L (136-145); eGFR For African Americans > 60 (> 60); eGFR For Non-African Americans > 60 (> 60)
[2020-12-23] MEDS: *HR* Heparin 5,000 UNIT/ML VIAL SQ SCH ×2 (05:18→14:26)
[2020-12-23] MEDS: polyethylene glycoL 3350 17 GM POWD.PACK PO SCH (07:50)
[2020-12-23] MEDS: Lactulose Oral Soln 20 GM/30 ML UDC PO SCH (07:50)
[2020-12-23] MEDS: Sennosides/Docusate Sodium TABLET PO SCH (07:50)
[2020-12-23] MEDS: Loratadine 10 MG TABLET PO SCH (07:50)
[2020-12-23] MEDS: Simethicone 80 MG TAB.CHEW PO SCH ×2 (07:50→14:19)
[2020-12-23] MEDS ORDERED: 0.9 % Sodium Chloride 500 ML IV ONE ×3 (14:15→15:15)
[2020-12-23 14:27] LABS: ABG Base Excess 3 mEq/L (-2 to 3); ABG HCO3 29 mEq/L (21-27); ABG Oxygen Saturation 98 % (95-98); ABG PCO2 48 mmHg (35-45); ABG PH 7.38 pH Units (7.32-7.45); ABG PO2 102 mmHg (85-104); ABG TCO2 30 mEq/L (20-26)
[2020-12-23] MEDS ORDERED: 0.9 % Sodium Chloride 1,000 ML IV ONE (15:41)
[2020-12-23 15:44] LABS: Basophils # 0.1 K/mcL (0.0-0.2); Basophils % 1.2 %; Eosinophils # 0.2 K/mcL (0.0-0.6); Eosinophils % 2.4 %; Hematocrit 27.9 % (37.5-50.1); Hemoglobin 8.5 g/dL (12.9-16.9); Immature Granulocytes % 0.9 % (0-4); Mean Corpuscular HGB Conc 30.5 g/dL (31.6-35.5); Mean Corpuscular Hemoglobin 26.9 pg (28.0-33.3); Mean Corpuscular Volume 88.3 fL (83.0-100.0); Mean Platelet Volume 9.2 fL (9.4-12.4); Monocytes # 0.8 K/mcL (0.0-1.3); Monocytes % 8.7 %; Neutrophils # 6.3 K/mcL (1.6-8.9); Platelet Count 385 K/mcL (140-400); Red Blood Count 3.16 M/mcL (4.19-5.50); Segmented Neutrophils % 65.8 %; White Blood Count 9.6 K/mcL (4.3-11.1)
[2020-12-23] MEDS ORDERED: Piperacillin/Tazobactam 3.375 GM in 0.9 % Sodium Chloride Mini Bag 100 ML IVPB SCH (16:00)
[2020-12-23 16:03] LABS: BUN/Creatinine Ratio 36 (6-26); Blood Urea Nitrogen 10 mg/dL (8-23); Calcium 7.6 mg/dL (8.6-10.3); Carbon Dioxide 23 mEq/L (23-29); Chloride 113 mEq/L (98-107); Glucose 104 mg/dL (70-105); Osmolality,Calculated 295 (280-300); Potassium 3.7 mEq/L (3.5-5.1); Sodium 143 mEq/L (136-145); eGFR For African Americans > 60 (> 60); eGFR For Non-African Americans > 60 (> 60)
[2020-12-23] MEDS ORDERED: Perflutren Lipid Microsphere 1.3 ML in 0.9 % Sodium Chloride 8.7 ML IVP PRN (17:40)
[2020-12-23] MEDS ORDERED: Acetaminophen 325 MG TABLET PO PRN (17:40)
[2020-12-23] MEDS ORDERED: Ipratropium/Albuterol Neb 3 ML IH PRN (17:40)
[2020-12-23] MEDS: Albumin Human 5% 12.5 GM/250 ML IV.SOLN IVC SCH ×2 (18:28→23:03)
[2020-12-23 19:05] LABS: Adenovirus Not Detected (Not Detect); Bordetella Pertussis Not Detected (Not Detect); Chlamydophila pneumoniae Not Detected (Not Detect); Coronavirus 229E Not Detected (Not Detect); Coronavirus HKU1 Not Detected (Not Detect); Coronavirus NL63 Not Detected (Not Detect); Coronavirus OC43 Not Detected (Not Detect); Human Metapneumovirus Not Detected (Not Detect); Human Rhinovirus/Enterovirus Not Detected (Not Detect); Influenza A Subtype 2009 H1 Not Detected (Not Detect); Influenza B Not Detected (Not Detect); Mycoplasma pneumoniae Not Detected (Not Detect); Parainfluenza Virus 1 Not Detected (Not Detect); Parainfluenza Virus 2 Not Detected (Not Detect); Parainfluenza Virus 3 Not Detected (Not Detect); Parainfluenza Virus 4 Not Detected (Not Detect); Respiratory Syncytial Virus Not Detected (Not Detect); SARS-CoV-2 Not Detected (Not Detect)
[2020-12-23] MEDS ORDERED: Norepinephrine 4 MG/254 ML IV.SOLN IVC SCH (19:15)
[2020-12-24] MEDS: Piperacillin/Tazobactam 3.375 GM in 0.9 % Sodium Chloride Mini Bag 100 ML IVPB SCH ×3 (01:29→17:27)
[2020-12-24 05:42] LABS: Basophils # 0.1 K/mcL (0.0-0.2); Basophils % 0.8 %; Eosinophils # 0.3 K/mcL (0.0-0.6); Hematocrit 25.5 % (37.5-50.1); Hemoglobin 7.9 g/dL (12.9-16.9); Immature Granulocytes % 0.8 % (0-4); Lymphocytes % 25.7 %; Mean Corpuscular Hemoglobin 27.2 pg (28.0-33.3); Mean Corpuscular Volume 87.9 fL (83.0-100.0); Mean Platelet Volume 8.9 fL (9.4-12.4); Monocytes # 0.7 K/mcL (0.0-1.3); Monocytes % 8.5 %; Neutrophils # 4.7 K/mcL (1.6-8.9); Platelet Count 346 K/mcL (140-400); Segmented Neutrophils % 60.2 %; White Blood Count 7.8 K/mcL (4.3-11.1)
[2020-12-24 05:59] LABS: BUN/Creatinine Ratio 27 (6-26); Blood Urea Nitrogen 7 mg/dL (8-23); Calcium 8.2 mg/dL (8.6-10.3); Carbon Dioxide 25 mEq/L (23-29); Chloride 112 mEq/L (98-107); Glucose 81 mg/dL (70-105); Osmolality,Calculated 295 (280-300); Potassium 3.5 mEq/L (3.5-5.1); Sodium 144 mEq/L (136-145); eGFR For African Americans > 60 (> 60); eGFR For Non-African Americans > 60 (> 60)
[2020-12-24] MEDS ORDERED: Loratadine 10 MG TABLET PO SCH (09:00)
[2020-12-24] MEDS ORDERED: Lactulose Oral Soln 20 GM/30 ML UDC PO SCH (09:00)
[2020-12-24] MEDS ORDERED: Ipratropium/Albuterol Neb 3 ML IH PRN (10:12)
[2020-12-25] MEDS: Piperacillin/Tazobactam 3.375 GM in 0.9 % Sodium Chloride Mini Bag 100 ML IVPB SCH ×3 (00:11→17:03)
[2020-12-25] MEDS ORDERED: 0.9 % Sodium Chloride 1,000 ML IVC ONE (02:34)
[2020-12-25 03:53] LABS: Basophils # 0.1 K/mcL (0.0-0.2); Basophils % 0.5 %; Eosinophils # 0.3 K/mcL (0.0-0.6); Eosinophils % 3.5 %; Hematocrit 24.9 % (37.5-50.1); Hemoglobin 7.6 g/dL (12.9-16.9); Immature Granulocytes % 0.7 % (0-4); Lymphocytes # 1.8 K/mcL (0.6-4.6); Lymphocytes % 19.9 %; Mean Corpuscular HGB Conc 30.5 g/dL (31.6-35.5); Mean Corpuscular Volume 88.6 fL (83.0-100.0); Mean Platelet Volume 8.7 fL (9.4-12.4); Monocytes # 0.7 K/mcL (0.0-1.3); Monocytes % 7.9 %; Neutrophils # 6.2 K/mcL (1.6-8.9); Platelet Count 336 K/mcL (140-400); Red Blood Count 2.81 M/mcL (4.19-5.50); Red Cell Distribution Width 15.9 % (11.5-14.5); Segmented Neutrophils % 67.5 %; White Blood Count 9.2 K/mcL (4.3-11.1)
[2020-12-25 04:18] LABS: BUN/Creatinine Ratio 21 (6-26); Blood Urea Nitrogen 6 mg/dL (8-23); Calcium 8.1 mg/dL (8.6-10.3); Carbon Dioxide 27 mEq/L (23-29); Chloride 113 mEq/L (98-107); Glucose 83 mg/dL (70-105); Osmolality,Calculated 299 (280-300); Potassium 3.2 mEq/L (3.5-5.1); Sodium 146 mEq/L (136-145); eGFR For African Americans > 60 (> 60); eGFR For Non-African Americans > 60 (> 60)
[2020-12-25] MEDS ORDERED: 0.9 % Sodium Chloride 500 ML IV ONE (05:45)
[2020-12-25] MEDS ORDERED: 0.9 % Sodium Chloride 500 ML ONE (05:54)
[2020-12-25] MEDS ORDERED: Potassium Chloride 40 MEQ, Lidocaine 1% 2 ML in 0.9 % Sodium Chloride 500 ML IVPB ONE (07:13)
[2020-12-25] MEDS: Loratadine 10 MG TABLET PO SCH (08:19)
[2020-12-25] MEDS: Lactulose Oral Soln 20 GM/30 ML UDC PO SCH (08:19)
[2020-12-25] MEDS: D5% in Water 1,000 ML IVC SCH ×2 (11:26→21:18)
[2020-12-25 14:59] LABS: Hematocrit 23.9 % (37.5-50.1); Hemoglobin 7.4 g/dL (12.9-16.9)
[2020-12-25 15:06] LABS: Amorphous Sediment,Urine Few per hpf (None-Few); Bilirubin,Urine Negative (Negative); Blood,Urine Large (Negative); Clarity,Urine Ex.Turbid (Clear); Color,Urine Light-Orange (Yellow); Glucose,Urine (UA) Normal (Normal); Ketones,Urine Negative (Negative); Leukocyte Esterase,Urine Large (Negative); Mucus,Urine Few per lpf (None-Few); Nitrite,Urine Negative (Negative); Protein,Urine 100 mg/dL (Neg-Trace); RBC,Urine TNTC per hpf (0-3); Specific Gravity,Urine 1.021 (1.010-1.025); Urobilinogen,Urine Normal (Normal); WBC,Urine TNTC per hpf (0-3)
[2020-12-25 21:23] LABS: Hematocrit 27.7 % (37.5-50.1); Hemoglobin 8.4 g/dL (12.9-16.9)
[2020-12-26] MEDS: Piperacillin/Tazobactam 3.375 GM in 0.9 % Sodium Chloride Mini Bag 100 ML IVPB SCH ×4 (00:29→23:54)
[2020-12-26 04:21] LABS: Basophils # 0.1 K/mcL (0.0-0.2); Basophils % 0.8 %; Eosinophils # 0.5 K/mcL (0.0-0.6); Eosinophils % 5.8 %; Immature Granulocytes % 0.7 % (0-4); Lymphocytes # 2.3 K/mcL (0.6-4.6); Lymphocytes % 25.1 %; Mean Corpuscular HGB Conc 30.8 g/dL (31.6-35.5); Mean Corpuscular Hemoglobin 27.1 pg (28.0-33.3); Mean Corpuscular Volume 88.1 fL (83.0-100.0); Mean Platelet Volume 9.1 fL (9.4-12.4); Monocytes # 0.7 K/mcL (0.0-1.3); Monocytes % 7.1 %; Neutrophils # 5.6 K/mcL (1.6-8.9); Platelet Count 362 K/mcL (140-400); Red Blood Count 2.95 M/mcL (4.19-5.50); Red Cell Distribution Width 16.2 % (11.5-14.5); Segmented Neutrophils % 60.5 %; White Blood Count 9.2 K/mcL (4.3-11.1)
[2020-12-26 05:24] LABS: BUN/Creatinine Ratio 9 (6-26); Blood Urea Nitrogen 2 mg/dL (8-23); Calcium 7.6 mg/dL (8.6-10.3); Carbon Dioxide 22 mEq/L (23-29); Chloride 107 mEq/L (98-107); Glucose 102 mg/dL (70-105); Osmolality,Calculated 278 (280-300); Potassium 3.7 mEq/L (3.5-5.1); Sodium 136 mEq/L (136-145); eGFR For African Americans > 60 (> 60); eGFR For Non-African Americans > 60 (> 60)
[2020-12-26] MEDS: D5% in Water 1,000 ML IVC SCH (06:17)
[2020-12-26] MEDS: Lactulose Oral Soln 20 GM/30 ML UDC PO SCH (07:18)
[2020-12-26] MEDS: Loratadine 10 MG TABLET PO SCH (07:18)
[2020-12-26] MEDS: Acetaminophen 325 MG TABLET PO PRN (09:08)
[2020-12-27] MEDS: Acetaminophen 325 MG TABLET PO PRN (01:32)
[2020-12-27] MEDS ORDERED: *HR* Metoprolol 5 MG/5 ML VIAL IVP ONE ×2 (02:14→02:20)
[2020-12-27 02:47] LABS: Basophils # 0.1 K/mcL (0.0-0.2); Basophils % 0.5 %; Eosinophils # 0.5 K/mcL (0.0-0.6); Eosinophils % 4.2 %; Hematocrit 31.9 % (37.5-50.1); Immature Granulocytes % 0.4 % (0-4); Lymphocytes # 1.4 K/mcL (0.6-4.6); Lymphocytes % 12.1 %; Mean Corpuscular HGB Conc 31.7 g/dL (31.6-35.5); Mean Corpuscular Hemoglobin 27.4 pg (28.0-33.3); Mean Corpuscular Volume 86.4 fL (83.0-100.0); Monocytes # 0.8 K/mcL (0.0-1.3); Monocytes % 6.6 %; Neutrophils # 8.7 K/mcL (1.6-8.9); Platelet Count 433 K/mcL (140-400); Red Blood Count 3.69 M/mcL (4.19-5.50); Segmented Neutrophils % 76.2 %; White Blood Count 11.5 K/mcL (4.3-11.1)
[2020-12-27 02:48] LABS: Hemoglobin 10.1 g/dL (12.9-16.9)
[2020-12-27 03:08] LABS: BUN/Creatinine Ratio 8 (6-26); Blood Urea Nitrogen 2 mg/dL (8-23); Calcium 8.1 mg/dL (8.6-10.3); Carbon Dioxide 23 mEq/L (23-29); Chloride 105 mEq/L (98-107); Glucose 128 mg/dL (70-105); Osmolality,Calculated 280 (280-300); Potassium 3.5 mEq/L (3.5-5.1); Sodium 136 mEq/L (136-145); eGFR For African Americans > 60 (> 60); eGFR For Non-African Americans > 60 (> 60)
[2020-12-27] MEDS: Lactulose Oral Soln 20 GM/30 ML UDC PO SCH (09:32)
[2020-12-27] MEDS: Piperacillin/Tazobactam 3.375 GM in 0.9 % Sodium Chloride Mini Bag 100 ML IVPB SCH ×3 (09:32→23:54)
[2020-12-27] MEDS: Loratadine 10 MG TABLET PO SCH (09:32)
[2020-12-28 04:01] LABS: Basophils # 0.1 K/mcL (0.0-0.2); Basophils % 0.6 %; Eosinophils # 0.8 K/mcL (0.0-0.6); Eosinophils % 8.1 %; Hematocrit 28.4 % (37.5-50.1); Immature Granulocytes % 0.5 % (0-4); Lymphocytes # 2.1 K/mcL (0.6-4.6); Lymphocytes % 22.1 %; Mean Corpuscular HGB Conc 31.7 g/dL (31.6-35.5); Mean Corpuscular Hemoglobin 27.5 pg (28.0-33.3); Mean Corpuscular Volume 86.9 fL (83.0-100.0); Mean Platelet Volume 8.9 fL (9.4-12.4); Monocytes # 0.7 K/mcL (0.0-1.3); Monocytes % 6.9 %; Neutrophils # 5.8 K/mcL (1.6-8.9); Platelet Count 363 K/mcL (140-400); Red Blood Count 3.27 M/mcL (4.19-5.50); Red Cell Distribution Width 16.2 % (11.5-14.5); Segmented Neutrophils % 61.8 %; White Blood Count 9.4 K/mcL (4.3-11.1)
[2020-12-28 04:18] LABS: BUN/Creatinine Ratio 19 (6-26); Blood Urea Nitrogen 5 mg/dL (8-23); Carbon Dioxide 23 mEq/L (23-29); Chloride 108 mEq/L (98-107); Glucose 103 mg/dL (70-105); Magnesium 2.1 mg/dL (1.6-2.6); Osmolality,Calculated 284 (280-300); Phosphorous 3.2 mg/dL (2.7-4.5); Potassium 3.4 mEq/L (3.5-5.1); Sodium 138 mEq/L (136-145); eGFR For African Americans > 60 (> 60); eGFR For Non-African Americans > 60 (> 60)
[2020-12-28] MEDS: Piperacillin/Tazobactam 3.375 GM in 0.9 % Sodium Chloride Mini Bag 100 ML IVPB SCH ×3 (08:00→23:44)
[2020-12-28] MEDS: Lactulose Oral Soln 20 GM/30 ML UDC PO SCH (08:00)
[2020-12-28] MEDS: Loratadine 10 MG TABLET PO SCH (08:00)
[2020-12-28] MEDS: Potassium Chloride Elixir 20 MEQ/15 ML UDC PO SCH ×2 (09:18→12:24)
[2020-12-29 08:39] LABS: Basophils # 0.1 K/mcL (0.0-0.2); Basophils % 0.6 %; Eosinophils # 0.9 K/mcL (0.0-0.6); Eosinophils % 9.2 %; Hematocrit 29.6 % (37.5-50.1); Immature Granulocytes % 0.4 % (0-4); Lymphocytes % 20.2 %; Mean Corpuscular HGB Conc 30.4 g/dL (31.6-35.5); Mean Corpuscular Hemoglobin 26.7 pg (28.0-33.3); Mean Corpuscular Volume 87.8 fL (83.0-100.0); Mean Platelet Volume 9.3 fL (9.4-12.4); Monocytes # 0.7 K/mcL (0.0-1.3); Monocytes % 7.4 %; Neutrophils # 6.3 K/mcL (1.6-8.9); Platelet Count 430 K/mcL (140-400); Red Blood Count 3.37 M/mcL (4.19-5.50); Red Cell Distribution Width 16.6 % (11.5-14.5); Segmented Neutrophils % 62.2 %; White Blood Count 10.1 K/mcL (4.3-11.1)
[2020-12-29 08:56] LABS: BUN/Creatinine Ratio 23 (6-26); Blood Urea Nitrogen 7 mg/dL (8-23); Calcium 8.2 mg/dL (8.6-10.3); Carbon Dioxide 22 mEq/L (23-29); Chloride 108 mEq/L (98-107); Magnesium 2.1 mg/dL (1.6-2.6); Phosphorous 3.3 mg/dL (2.7-4.5); Potassium 3.5 mEq/L (3.5-5.1); Sodium 139 mEq/L (136-145); eGFR For African Americans > 60 (> 60); eGFR For Non-African Americans > 60 (> 60)
[2020-12-29] MEDS: Lactulose Oral Soln 20 GM/30 ML UDC PO SCH (09:12)
[2020-12-29] MEDS: Piperacillin/Tazobactam 3.375 GM in 0.9 % Sodium Chloride Mini Bag 100 ML IVPB SCH ×2 (09:12→16:47)
[2020-12-29] MEDS: Loratadine 10 MG TABLET PO SCH (09:12)
[2020-12-29] MEDS ORDERED: *HR* Metoprolol 5 MG/5 ML VIAL IVP ONE (14:00)
[2020-12-29] MEDS ORDERED: Apixaban 5 MG TABLET PO SCH (21:00)
[2020-12-30] MEDS: Piperacillin/Tazobactam 3.375 GM in 0.9 % Sodium Chloride Mini Bag 100 ML IVPB SCH ×4 (01:00→23:28)
[2020-12-30 02:38] LABS: Basophils # 0.1 K/mcL (0.0-0.2); Basophils % 0.5 %; Eosinophils # 0.6 K/mcL (0.0-0.6); Eosinophils % 5.3 %; Hematocrit 30.1 % (37.5-50.1); Hemoglobin 9.2 g/dL (12.9-16.9); Immature Granulocytes % 0.5 % (0-4); Lymphocytes # 1.9 K/mcL (0.6-4.6); Lymphocytes % 15.8 %; Mean Corpuscular HGB Conc 30.6 g/dL (31.6-35.5); Mean Corpuscular Hemoglobin 26.8 pg (28.0-33.3); Mean Corpuscular Volume 87.8 fL (83.0-100.0); Mean Platelet Volume 9.3 fL (9.4-12.4); Monocytes # 0.8 K/mcL (0.0-1.3); Monocytes % 6.7 %; Neutrophils # 8.4 K/mcL (1.6-8.9); Platelet Count 436 K/mcL (140-400); Red Blood Count 3.43 M/mcL (4.19-5.50); Red Cell Distribution Width 16.5 % (11.5-14.5); Segmented Neutrophils % 71.2 %; White Blood Count 11.7 K/mcL (4.3-11.1)
[2020-12-30 02:41] LABS: BUN/Creatinine Ratio 29 (6-26); Blood Urea Nitrogen 12 mg/dL (8-23); Calcium 8.2 mg/dL (8.6-10.3); Carbon Dioxide 22 mEq/L (23-29); Chloride 110 mEq/L (98-107); Glucose 121 mg/dL (70-105); Magnesium 2.1 mg/dL (1.6-2.6); Osmolality,Calculated 289 (280-300); Phosphorous 3.2 mg/dL (2.7-4.5); Sodium 139 mEq/L (136-145); eGFR For African Americans > 60 (> 60); eGFR For Non-African Americans > 60 (> 60)
[2020-12-30] MEDS ORDERED: Apixaban 5 MG TABLET PO SCH (09:00)
[2020-12-30] MEDS: Loratadine 10 MG TABLET PO SCH (11:07)
[2020-12-30] MEDS: Lactulose Oral Soln 20 GM/30 ML UDC PO SCH (11:08)
[2020-12-30] MEDS: Acetaminophen 325 MG TABLET PO PRN (19:30)
[2020-12-30] MEDS ORDERED: Ringers Solution, Lactated 1,000 ML IVC SCH (20:00)
[2020-12-30] MEDS: Apixaban 2.5 MG TABLET PO SCH (21:25)
[2020-12-30] MEDS: carvediloL 6.25 MG TABLET PO SCH (21:25)
[2020-12-31 02:45] LABS: Basophils % 0.2 %; Eosinophils # 0.4 K/mcL (0.0-0.6); Eosinophils % 4.3 %; Hematocrit 25.8 % (37.5-50.1); Immature Granulocytes % 0.3 % (0-4); Lymphocytes % 20.5 %; Mean Corpuscular Hemoglobin 27.6 pg (28.0-33.3); Mean Platelet Volume 9.3 fL (9.4-12.4); Monocytes # 0.6 K/mcL (0.0-1.3); Monocytes % 6.1 %; Neutrophils # 6.8 K/mcL (1.6-8.9); Platelet Count 361 K/mcL (140-400); Red Cell Distribution Width 16.3 % (11.5-14.5); Segmented Neutrophils % 68.6 %; White Blood Count 9.9 K/mcL (4.3-11.1)
[2020-12-31 03:09] LABS: BUN/Creatinine Ratio 40 (6-26); Blood Urea Nitrogen 10 mg/dL (8-23); Calcium 7.7 mg/dL (8.6-10.3); Carbon Dioxide 23 mEq/L (23-29); Chloride 110 mEq/L (98-107); Glucose 135 mg/dL (70-105); Magnesium 1.9 mg/dL (1.6-2.6); Osmolality,Calculated 291 (280-300); Phosphorous 2.9 mg/dL (2.7-4.5); Potassium 4.1 mEq/L (3.5-5.1); Sodium 140 mEq/L (136-145); eGFR For African Americans > 60 (> 60); eGFR For Non-African Americans > 60 (> 60)
[2020-12-31] MEDS ORDERED: Furosemide 40 MG/4 ML VIAL IVP ONE (08:57)
[2020-12-31] MEDS: Piperacillin/Tazobactam 3.375 GM in 0.9 % Sodium Chloride Mini Bag 100 ML IVPB SCH (08:57)
[2020-12-31] MEDS: Lactulose Oral Soln 20 GM/30 ML UDC PO SCH (09:15)
[2020-12-31] MEDS: Loratadine 10 MG TABLET PO SCH (09:15)
[2020-12-31] MEDS: carvediloL 6.25 MG TABLET PO SCH ×2 (09:15→17:24)
[2020-12-31] MEDS: Apixaban 2.5 MG TABLET PO SCH ×2 (09:15→20:39)
[2020-12-31] MEDS: Furosemide 40 MG/4 ML VIAL IVP SCH (20:39)
[2021-01-01 01:33] LABS: Basophils # 0.1 K/mcL (0.0-0.2); Basophils % 0.5 %; Eosinophils # 0.7 K/mcL (0.0-0.6); Hematocrit 30.7 % (37.5-50.1); Hemoglobin 9.4 g/dL (12.9-16.9); Immature Granulocytes % 0.5 % (0-4); Lymphocytes % 18.3 %; Mean Corpuscular HGB Conc 30.6 g/dL (31.6-35.5); Mean Corpuscular Hemoglobin 26.6 pg (28.0-33.3); Mean Platelet Volume 9.2 fL (9.4-12.4); Monocytes # 0.8 K/mcL (0.0-1.3); Neutrophils # 7.5 K/mcL (1.6-8.9); Platelet Count 419 K/mcL (140-400); Red Blood Count 3.53 M/mcL (4.19-5.50); Red Cell Distribution Width 16.3 % (11.5-14.5); Segmented Neutrophils % 67.7 %; White Blood Count 11.1 K/mcL (4.3-11.1)
[2021-01-01 01:52] LABS: BUN/Creatinine Ratio 34 (6-26); Blood Urea Nitrogen 13 mg/dL (8-23); Calcium 8.4 mg/dL (8.6-10.3); Carbon Dioxide 26 mEq/L (23-29); Chloride 100 mEq/L (98-107); Glucose 127 mg/dL (70-105); Magnesium 1.9 mg/dL (1.6-2.6); Osmolality,Calculated 286 (280-300); Potassium 3.7 mEq/L (3.5-5.1); Sodium 137 mEq/L (136-145); eGFR For African Americans > 60 (> 60); eGFR For Non-African Americans > 60 (> 60)
[2021-01-01 09:18] LABS: Thyroid Stimulating Hormone 2.238 mcIU/mL (0.340-5.600)
[2021-01-01] MEDS: Lactulose Oral Soln 20 GM/30 ML UDC PO SCH (11:02)
[2021-01-01] MEDS: carvediloL 6.25 MG TABLET PO SCH (11:02)
[2021-01-01] MEDS: Apixaban 2.5 MG TABLET PO SCH (11:02)
[2021-01-01] MEDS: Furosemide 40 MG/4 ML VIAL IVP SCH (11:02)
[2021-01-01] MEDS: Loratadine 10 MG TABLET PO SCH (11:02)
[2021-01-01 11:14] VITALS: BP 118/73
== END 2021-01-01 17:17 | DRG 853 ==
LOC: 3ANU → SUATTDRO 12-07 12:37 → ICNU 12-23 17:30 → 2NNU 12-24 16:33 → CDU 12-27 20:09 → 3ANU 12-29 15:19
PROVIDERS: ADMIT Internal Medicine; ATTEND Internal Medicine